=== PATIENT | female | born 1955 | race Hispanic/Latino ===

== ENCOUNTER 2017-08-28 08:32 | Day surgery (SDC) | payer MEDICAID ==
[2017-08-22 13:51] VITALS: BMI 25.8
[2017-08-28] MEDS ORDERED: Lidocaine 2% Jelly (30 ml) ONE (09:02)
[2017-08-28] MEDS ORDERED: Propofol 10 mg/ml Inj (20 ML) ONE (09:08)
[2017-08-28] MEDS ORDERED: Sodium Chloride 0.9% 1,000 ML IV SCH (09:45)
[2017-08-28 10:58] VITALS: PULSE 58; RESP 16; TEMP 98; O2SAT 99
[2017-08-28 15:34] VITALS: BP 102/63
== END 2017-08-28 12:36 | disposition home or self-care (01) ==
LOC: ENDO 08:32
PROVIDERS: ATTEND Internal Medicine
DX: K62.5 Hemorrhage of anus and rectum (principal); K57.30 Diverticulosis of large intestine without perforation or abscess without bleeding; K64.8 Other hemorrhoids; K59.00 Constipation, unspecified
CPT/HCPCS: 45380; 88305; J1885; J2405; J2704; J7040 ×2

== ENCOUNTER 2019-02-13 07:20 | Outpatient (CLI) | payer MEDICAID | END 2019-02-13 07:21 | disposition home or self-care (01) | LOC: RAD 07:20 ==

== ENCOUNTER 2019-02-19 12:52 | Outpatient (CLI) | payer MEDICAID | END 2019-02-19 12:53 | disposition home or self-care (01) | LOC: RAD 12:52 ==